=== PATIENT | male | born 1975 | race Caucasian/White ===

== ENCOUNTER 2023-01-21 12:21 | Inpatient (IN) ==
[2023-01-21] MEDS ORDERED: SODIUM CHLORIDE 0.9% 1000ML 1,000 ML IV ONE ×2 (12:55→14:27)
[2023-01-21] MEDS ORDERED: ONDANSETRON INJ 2 MG/ML 2 ML VIAL IV STA (12:55)
--- NOTE | 2023-01-21 13:01 | Emergency Department Note ---
Impression & Plan Acute dehydration, Anemia, Abnormal LFTs, Dehydration ED Provider Note NAME: KOFI COLLINS AGE: 47 SEX: M : 1975 ARRIVES VIA: Walk-In INFORMANT: Patient, the patient's family members ED PROVIDER(S): Will Pham DO CHIEF COMPLAINT: Decreased p.o. intake HPI: The patient is a 47-year-old male who presented to the emergency department with family for an evaluation of difficulty eating. 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 He presented to the emergency department because of decreased p.o. intake. He was unable to get his last round of chemotherapy because he was so weak. He is only had 1 round of chemotherapy. This cancer was initially diagnosed last April. He was treated at that time with chemotherapy. This is a repeat chemotherapy treatment as the patient was found to have metastatic disease. He denies having any chest pain but does complain of difficulty breathing. He also complains of abdominal distention. He notices no swelling in his legs. He had no fever according to his family members. They called the patient's primary oncologist and they were referred to the emergency department for further evaluation. ROS: See above HPI for pertinent positives & negatives. A total of 10 systems reviewed and were otherwise negative. PAST MEDICAL HISTORY: See Below PAST SURGICAL HISTORY: See Below FAMILY HISTORY: See Below SOCIAL HISTORY: See Below HOME MEDICATIONS: See Below ALLERGIES: See Below VITALS: See Below PHYSICAL EXAMINATION: GENERAL: The patient is frail and cachectic appearing. EYES: The conjunctivae are icteric. The pupils are round and reactive. EARS, NOSE, MOUTH AND THROAT: The nose is without any evidence of any deformity. Mucous membranes are dry. NECK: The neck is nontender and supple. RESPIRATORY: Normal respiratory effort is noted there is no evidence of wheezing rhonchi or rales CARDIOVASCULAR: Regular rate and rhythm noted there no murmurs rubs or gallops normal S1 normal S2. GASTROINTESTINAL: The abdomen is distended with hepatomegaly noted to palpation. MUSCULOSKELETAL/EXTREMITIES: There is no evidence of gross deformity full range of motion is noted in the hips and shoulders. SKIN: Pedal edema was noted bilaterally. Skin was cool. Skin was jaundiced. NEUROLOGIC: Patient is awake and oriented to person place and situation. Strength was symmetric but diminished. MEDICAL DECISION MAKING: The patient is a 47-year-old male who presented to the emergency department for an evaluation of generalized weakness. The patient has not been eating or drinking. The patient was very ill on my initial evaluation. He was very cachectic. He was treated with multiple IV fluid boluses. I discussed the patient's laboratory and radiographic studies with him and his family member. He appears to have a significant elevation in his liver function studies compared to before. He also has an elevation in his creatinine. His lactic acid was very high. The patient has metastatic cancer. I am unsure of how well the patient will do overall. He was consented for blood however blood products were held at this time until he was evaluated by the admitting team. He was treated with a large fluid bolus. I discussed patient's laboratory and rad iographic studies with the on-call [facility] hospitalist group. Previous laboratory and radiographic studies were obtained from [facility]. Triage Nursing notes reviewed. Prior medical records reviewed Vital Signs: reviewed and remarkable for tachycardia. Differential diagnosis: Gastroenteritis, food borne illness, infections, appendicitis, diverticulitis, inflammatory bowel disease, obstruction, GI bleed, biliary pathology, volvulus, as well as other pathologies. ER treatment provided: See below Diagnostics interpreted by me: ECG: EKG was obtained in the emergency department. My interpretation is normal sinus rhythm at 95 bpm. Nonspecific T wave abnormalities were noted with inversions. Low voltage was noted throughout. No previous tracing was available. Cardiac Monitoring: An order was placed for continuous cardiac monitoring. The monitor shows a rate of 93 bpm with sinus rhythm. Laboratory studies: As stated above and show below. Imaging studies: See below. Radiographic imaging was reviewed by myself Consultation(s): I discussed this case with Harleen who is on for the [facility] hospitalist group. ED COURSE: Procedures: none Critical Care: I have personally spent greater than 35 minutes of critical care time in the direct management of this patient. This includes bedside care, interpretation of diagnostic studies, and testing, discussion with consultants, patient, and family members, and other required patient management activities. This 35 minutes is in excess of all separately billable procedures. 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 Sister Osteoarthritis Brother No problems noted. Social History Smoking Status: Never smoker Tobacco Type: Cigarettes Age Started Using Tobacco: 10; packs per day: 1.5; Second Hand Exposure: Yes; Hx Alcohol Use: No Hx Substance Use: No Preferred Language: Irish Communication Ability: Effective Hearing Ability: Normal Beliefs That Will Affect Care: None marital status: Life Partner Current Living Situation: Significant Other and Other Current Living Situation Comment: 2 sons + girlfriend lives with pt current occupational status: employed current occupation: construction How many Children do You have: 2 Feels Safe at Home: Yes Allergies Allergies Allergy/AdvReac Type Severity Reaction Status Date / Time No Known Drug Allergies Allergy Verified 12/07/22 10:13 Home Meds Home Medications Medication Instructions Recorded Confirmed baclofen 10 mg tablet 10 mg PO TID PRN pain/back spasms 07/02/22 12/07/22 paroxetine HCl 20 mg tablet 20 mg PO DAILY 07/02/22 12/07/22 ondansetron HCl 8 mg tablet 8 mg PO Q8H PRN 08/10/22 12/07/22 prochlorperazine maleate 10 mg 10 mg PO Q6H PRN 08/10/22 12/07/22 tablet (Compazine) tramadol 50 mg tablet 50 mg PO Q8H PRN 08/30/22 12/07/22 dexamethasone 4 mg tablet 4 mg PO .COMPLEX 12/07/22 12/07/22 Previous Rx's Medication Instructions Recorded Magic Mouthwash 300 mL mouthwash 10 ml mucous membrane AC #300 mL 08/24/22 benzonatate 100 mg capsule 100 mg PO TID PRN cough #60 caps 09/07/22 Results & Data (ED) Vital Signs Vital Signs - 24 hr 01/21/23 12:28 01/21/23 12:40 01/21/23 12:55 Temperature 36.9 C Temperature Source Temporal Artery Scan Pulse Rate 109 H 92 H 97 H Pulse Rate [Apical] Pulse Rate from SpO2 Sensor Pulse Rhythm [Apical] Pulse Strength [Apical] Respiratory Rate 16 22 Respiratory Effort / Characteristics Non-Labored Spontaneous Respiratory Depth Normal Respiratory Pattern Regular Blood Pressure 89/61 L Blood Pressure [Right Arm] Blood Pressure Mean 70 Blood Pressure Mean [Right Arm] Blood Pressure Position Sitting Blood Pressure Position [Right Arm] Pulse Oximetry 96 99 Oxygen Delivery Method Room Air Room Air Sepsis Recent Fever Within 48 Hours No Sepsis New/Unexplained Change in Mental Status N/A Sepsis Action Taken by Nursing No Action Required 01/21/23 12:55 01/21/23 12:39 01/21/23 12:40 Temperature Temperature Source Pulse Rate 95 H 94 H Pulse Rate [Apical] 97 H Pulse Rate from SpO2 Sensor 95 H 93 H Pulse Rhythm [Apical] Regular Pulse Strength [Apical] Normal Respiratory Rate 22 24 23 Respiratory Effort / Characteristics Non-Labored Respiratory Depth Normal Respiratory Pattern Regular Blood Pressure Blood Pressure [Right Arm] 101/62 Blood Pressure Mean Blood Pressure Mean [Right Arm] 75 Blood Pressure Position Blood Pressure Position [Right Arm] Lying Pulse Oximetry 99 94 94 Oxygen Delivery Method Room Air Sepsis Recent Fever Within 48 Hours Sepsis New/Unexplained Change in Mental Status Sepsis Action Taken by Nursing 01/21/23 12:50 01/21/23 13:00 01/21/23 13:00 Temperature Temperature Source Pulse Rate 99 H 91 H Pulse Rate [Apical] Pulse Rate from SpO2 Sensor 92 H Pulse Rhythm [Apical] Pulse Strength [Apical] Respiratory Rate 24 23 Respiratory Effort / Characteristics Respiratory Depth Respiratory Pattern Blood Pressure 101/63 Blood Pressure [Right Arm] Blood Pressure Mean 75 Blood Pressure Mean [Right Arm] Blood Pressure Position Blood Pressure Position [Right Arm] Pulse Oximetry 95 Oxygen Delivery Method Sepsis Recent Fever Within 48 Hours Sepsis New/Unexplained Change in Mental Status Sepsis Action Taken by Nursing 01/21/23 13:10 01/21/23 13:12 01/21/23 13:12 Temperature Temperature Source Pulse Rate 99 H 102 H Pulse Rate [Apical] Pulse Rate from SpO2 Sensor 99 H 102 H Pulse Rhythm [Apical] Pulse Strength [Apical] Respiratory Rate 24 23 Respiratory Effort / Characteristics Respiratory Depth Respiratory Pattern Blood Pressure 109/69 Blood Pressure [Right Arm] Blood Pressure Mean 82 Blood Pressure Mean [Right Arm] Blood Pressure Position Blood Pressure Position [Right Arm] Pulse Oximetry 100 100 Oxygen Delivery Method Sepsis Recent Fever Within 48 Hours Sepsis New/Unexplained Change in Mental Status Sepsis Action Taken by Nursing 01/21/23 13:15 01/21/23 13:15 01/21/23 13:20 Temperature Temperature Source Pulse Rate 94 H 100 H Pulse Rate [Apical] Pulse Rate from SpO2 Sensor 96 H 99 H Pulse Rhythm [Apical] Pulse Strength [Apical] Respiratory Rate 27 H 24 Respiratory Effort / Characteristics Respiratory Depth Respiratory Pattern Blood Pressure 106/71 Blood Pressure [Right Arm] Blood Pressure Mean 82 Blood Pressure Mean [Right Arm] Blood Pressure Position Blood Pressure Position [Right Arm] Pulse Oximetry 100 100 Oxygen Delivery Method Sepsis Recent Fever Within 48 Hours Sepsis New/Unexplained Change in Mental Status Sepsis Action Taken by Nursing 01/21/23 13:30 01/21/23 13:30 01/21/23 13:40 Temperature Temperature Source Pulse Rate 97 H 92 H Pulse Rate [Apical] Pulse Rate from SpO2 Sensor 97 H 96 H Pulse Rhythm [Apical] Pulse Strength [Apical] Respiratory Rate 20 16 Respiratory Effort / Characteristics Respiratory Depth Respiratory Pattern Blood Pressure 112/62 Blood Pressure [Right Arm] Blood Pressure Mean 78 Blood Pressure Mean [Right Arm] Blood Pressure Position Blood Pressure Position [Right Arm] Pulse Oximetry 95 94 Oxygen Delivery Method Sepsis Recent Fever Within 48 Hours Sepsis New/Unexplained Change in Mental Status Sepsis Action Taken by Nursing 01/21/23 13:50 01/21/23 14:00 01/21/23 14:10 Temperature Temperature Source Pulse Rate 98 H 92 H 93 H Pulse Rate [Apical] Pulse Rate from SpO2 Sensor 100 H 92 H 95 H Pulse Rhythm [Apical] Pulse Strength [Apical] Respiratory Rate 36 H 22 22 Respiratory Effort / Characteristics Respiratory Depth Respiratory Pattern Blood Pressure 112/69 Blood Pressure [Right Arm] Blood Pressure Mean 83 Blood Pressure Mean [Right Arm] Blood Pressure Position Blood Pressure Position [Right Arm] Pulse Oximetry 95 94 93 Oxygen Delivery Method Sepsis Recent Fever Within 48 Hours Sepsis New/Unexplained Change in Mental Status Sepsis Action Taken by Nursing 01/21/23 14:15 01/21/23 14:15 01/21/23 14:20 Temperature Temperature Source Pulse Rate 100 H 100 H Pulse Rate [Apical] Pulse Rate from SpO2 Sensor 98 H 100 H Pulse Rhythm [Apical] Pulse Strength [Apical] Respiratory Rate 23 Respiratory Effort / Characteristics Respiratory Depth Respiratory Pattern Blood Pressure 106/60 Blood Pressure [Right Arm] Blood Pressure Mean 75 Blood Pressure Mean [Right Arm] Blood Pressure Position Blood Pressure Position [Right Arm] Pulse Oximetry 91 94 Oxygen Delivery Method Sepsis Recent Fever Within 48 Hours Sepsis New/Unexplained Change in Mental Status Sepsis Action Taken by Nursing 01/21/23 14:30 01/21/23 14:30 01/21/23 14:40 Temperature Temperature Source Pulse Rate 90 95 H Pulse Rate [Apical] Pulse Rate from SpO2 Sensor Pulse Rhythm [Apical] Pulse Strength [Apical] Respiratory Rate 24 23 Respiratory Effort / Characteristics Respiratory Depth Respiratory Pattern Blood Pressure 98/61 L Blood Pressure [Right Arm] Blood Pressure Mean 73 Blood Pressure Mean [Right Arm] Blood Pressure Position Blood Pressure Position [Right Arm] Pulse Oximetry Oxygen Delivery Method Sepsis Recent Fever Within 48 Hours Sepsis New/Unexplained Change in Mental Status Sepsis Action Taken by Nursing 01/21/23 14:45 01/21/23 14:45 01/21/23 14:50 Temperature Temperature Source Pulse Rate 91 H 96 H Pulse Rate [Apical] Pulse Rate from SpO2 Sensor 92 H 96 H Pulse Rhythm [Apical] Pulse Strength [Apical] Respiratory Rate 24 24 Respiratory Effort / Characteristics Respiratory Depth Respiratory Pattern Blood Pressure 105/66 Blood Pressure [Right Arm] Blood Pressure Mean 79 Blood Pressure Mean [Right Arm] Blood Pressure Position Blood Pressure Position [Right Arm] Pulse Oximetry 93 94 Oxygen Delivery Method Sepsis Recent Fever Within 48 Hours Sepsis New/Unexplained Change in Mental Status Sepsis Action Taken by Nursing 01/21/23 15:00 01/21/23 15:00 01/21/23 15:10 Temperature Temperature Source Pulse Rate 97 H 91 H Pulse Rate [Apical] Pulse Rate from SpO2 Sensor 92 H 92 H Pulse Rhythm [Apical] Pulse Strength [Apical] Respiratory Rate 26 H 22 Respiratory Effort / Characteristics Respiratory Depth Respiratory Pattern Blood Pressure 97/60 L Blood Pressure [Right Arm] Blood Pressure Mean 72 Blood Pressure Mean [Right Arm] Blood Pressure Position Blood Pressure Position [Right Arm] Pulse Oximetry 91 93 Oxygen Delivery Method Sepsis Recent Fever Within 48 Hours Sepsis New/Unexplained Change in Mental Status Sepsis Action Taken by Nursing 01/21/23 15:20 01/21/23 15:43 Temperature Temperature Source Pulse Rate 92 H Pulse Rate [Apical] 97 H Pulse Rate from SpO2 Sensor 91 H Pulse Rhythm [Apical] Regular Pulse Strength [Apical] Respiratory Rate 22 24 Respiratory Effort / Characteristics Respiratory Depth Respiratory Pattern Blood Pressure Blood Pressure [Right Arm] 103/63 Blood Pressure Mean Blood Pressure Mean [Right Arm] 76 Blood Pressure Position Blood Pressure Position [Right Arm] Pulse Oximetry 93 93 Oxygen Delivery Method Room Air Sepsis Recent Fever Within 48 Hours Sepsis New/Unexplained Change in Mental Status Sepsis Action Taken by Longterm Medications Current Medication List: was personally reviewed by me Laboratory Data Attestation: I reviewed the patient's lab results. 01/21/23 13:02 01/21/23 13:02 Lab Results 01/21/23 01/21/23 01/21/23 Range/Units 13:02 13:02 13:02 WBC 42.02 H* (4.8-10.8) K/ul RBC 1.80 L (4.70-6.10) M/uL Hgb 6.2 L* (14.0-18.0) g/dl Hct 18.3 L* (42.0-52.0) % MCV 101.7 H (80.0-100.0) fL MCH 34.4 H (25.0-34.0) pg MCHC 33.9 (32.0-36.0) g/dL RDW Std Deviation 67.5 H (36.4-46.3) fL RDW Coeff of [place] 25.6 H (11.5-14.5) % Plt Count 66 L (130-400) K/uL MPV 12.7 H (9.4-12.4) fL Absolute Nucleated RBC 3.51 H (0-0.12) K/uL Nucleated RBC % (auto) 8.4 % Neutrophils % (Manual) 88 % Lymphocytes % (Manual) 1 % Monocytes % (Manual) 1 % Eosinophils % (Manual) 3 % Metamyelocytes % (Man) 3 % Myelocytes % (Man) 3 % Promyelocytes % (Man) 2 % Neutrophils # (Manual) 36.98 H (1.40-6.50) K/uL Total Absolute Neuts 36.98 H (1.4-6.5) K/uL Lymphocytes # (Manual) 0.42 L (1.2-3.4) K/uL Total Abs Lymphocytes 0.42 L (1.2-3.4) K/uL Monocytes # (Manual) 0.42 (0.11-0.59) K/uL Eosinophils # (Manual) 1.26 H (0-0.50) K/uL Metamyelocytes # (Man) 1.26 H (0-0) K/uL Myelocytes # (Manual) 1.26 H (0-0) K/uL Promyelocytes # (Man) 0.84 H (0-0) K/uL Blood Smear Review Platelet Estimate Decreased L (Normal) Polychromasia 1+ Target Cells 1+ Echinocytes 1+ PT 42.1 H (9.0-12.0) Seconds INR 4.3 H (0.9-1.1) APTT 32.2 H (21.0-31.0) Seconds PTT Ratio 1.2 VBG pH (7.36-7.41) VBG pCO2 (38-50) mmHg VBG pO2 mmHg VBG HCO3 mmol/L VBG O2 Saturation % VBG Base Excess mEq/L Sodium 138 (136-145) mmol/L Potassium 5.3 H (3.5-5.1) mmol/L Chloride 98 (98-107) mmol/L Carbon Dioxide 17 L (21-32) mmol/L Anion Gap 23 H (3-11) BUN 83 H (6-23) mg/dl Creatinine 1.82 H (0.6-1.4) mg/dl Est Cr Clr Drug Dosing Not Reportable Est GFR ( Amer) 49.4 ml/min Est GFR (Non-Af Amer) 42.7 ml/min BUN/Creatinine Ratio 45.6 H (10-20) Glucose 109 H (70-99(Fasting)) mg/dl Lactate (0.4-2.0) mmol/L Calcium 7.7 L (8.6-10.3) mg/dl Magnesium 3.1 H (1.7-2.4) mg/dl Total Bilirubin 17.9 H (0.2-1.0) mg/dl Direct Bilirubin TNP AST 709 H (13-39) U/L ALT 1127 H (7-52) U/L Alkaline Phosphatase 463 H (34-104) U/L Troponin I High Sens 49.2 H (0-20) pg/ml Total Protein 4.5 L (6.0-8.3) gm/dl Albumin 2.6 L (3.4-5.0) gm/dl Procalcitonin (0-0.5) ng/ml SARS-CoV-2, RNA, NAAT (NEGATIVE) Blood Type Antibody Screen 01/21/23 01/21/23 01/21/23 Range/Units 13:02 13:02 14:03 WBC (4.8-10.8) K/ul RBC (4.70-6.10) M/uL Hgb (14.0-18.0) g/dl Hct (42.0-52.0) % MCV (80.0-100.0) fL MCH (25.0-34.0) pg MCHC (32.0-36.0) g/dL RDW Std Deviation (36.4-46.3) fL RDW Coeff of [place] (11.5-14.5) % Plt Count (130-400) K/uL MPV (9.4-12.4) fL Absolute Nucleated RBC (0-0.12) K/uL Nucleated RBC % (auto) % Neutrophils % (Manual) % Lymphocytes % (Manual) % Monocytes % (Manual) % Eosinophils % (Manual) % Metamyelocytes % (Man) % Myelocytes % (Man) % Promyelocytes % (Man) % Neutrophils # (Manual) (1.40-6.50) K/uL Total Absolute Neuts (1.4-6.5) K/uL Lymphocytes # (Manual) (1.2-3.4) K/uL Total Abs Lymphocytes (1.2-3.4) K/uL Monocytes # (Manual) (0.11-0.59) K/uL Eosinophils # (Manual) (0-0.50) K/uL Metamyelocytes # (Man) (0-0) K/uL Myelocytes # (Manual) (0-0) K/uL Promyelocytes # (Man) (0-0) K/uL Blood Smear Review Platelet Estimate (Normal) Polychromasia Target Cells Echinocytes PT (9.0-12.0) Seconds INR (0.9-1.1) APTT (21.0-31.0) Seconds PTT Ratio VBG pH (7.36-7.41) VBG pCO2 (38-50) mmHg VBG pO2 mmHg VBG HCO3 mmol/L VBG O2 Saturation % VBG Base Excess mEq/L Sodium (136-145) mmol/L Potassium (3.5-5.1) mmol/L Chloride (98-107) mmol/L Carbon Dioxide (21-32) mmol/L Anion Gap (3-11) BUN (6-23) mg/dl Creatinine (0.6-1.4) mg/dl Est Cr Clr Drug Dosing Est GFR ( Amer) ml/min Est GFR (Non-Af Amer) ml/min BUN/Creatinine Ratio (10-20) Glucose (70-99(Fasting)) mg/dl Lactate 14.2 H* (0.4-2.0) mmol/L Calcium (8.6-10.3) mg/dl Magnesium (1.7-2.4) mg/dl Total Bilirubin (0.2-1.0) mg/dl Direct Bilirubin AST (13-39) U/L ALT (7-52) U/L Alkaline Phosphatase (34-104) U/L Troponin I High Sens (0-20) pg/ml Total Protein (6.0-8.3) gm/dl Albumin (3.4-5.0) gm/dl Procalcitonin 2.42 H (0-0.5) ng/ml SARS-CoV-2, RNA, NAAT NEGATIVE (NEGATIVE) Blood Type Antibody Screen 01/21/23 01/21/23 01/21/23 Range/Units 14:08 14:51 15:57 WBC (4.8-10.8) K/ul RBC (4.70-6.10) M/uL Hgb (14.0-18.0) g/dl Hct (42.0-52.0) % MCV (80.0-100.0) fL MCH (25.0-34.0) pg MCHC (32.0-36.0) g/dL RDW Std Deviation (36.4-46.3) fL RDW Coeff of [place] (11.5-14.5) % Plt Count (130-400) K/uL MPV (9.4-12.4) fL Absolute Nucleated RBC (0-0.12) K/uL Nucleated RBC % (auto) % Neutrophils % (Manual) % Lymphocytes % (Manual) % Monocytes % (Manual) % Eosinophils % (Manual) % Metamyelocytes % (Man) % Myelocytes % (Man) % Promyelocytes % (Man) % Neutrophils # (Manual) (1.40-6.50) K/uL Total Absolute Neuts (1.4-6.5) K/uL Lymphocytes # (Manual) (1.2-3.4) K/uL Total Abs Lymphocytes (1.2-3.4) K/uL Monocytes # (Manual) (0.11-0.59) K/uL Eosinophils # (Manual) (0-0.50) K/uL Metamyelocytes # (Man) (0-0) K/uL Myelocytes # (Manual) (0-0) K/uL Promyelocytes # (Man) (0-0) K/uL Blood Smear Review Platelet Estimate (Normal) Polychromasia Target Cells Echinocytes PT (9.0-12.0) Seconds INR (0.9-1.1) APTT (21.0-31.0) Seconds PTT Ratio VBG pH 7.37 (7.36-7.41) VBG pCO2 26 L (38-50) mmHg VBG pO2 36 mmHg VBG HCO3 15 mmol/L VBG O2 Saturation < 60.0 % VBG Base Excess -8.6 mEq/L Sodium (136-145) mmol/L Potassium (3.5-5.1) mmol/L Chloride (98-107) mmol/L Carbon Dioxide (21-32) mmol/L Anion Gap (3-11) BUN (6-23) mg/dl Creatinine (0.6-1.4) mg/dl Est Cr Clr Drug Dosing Est GFR ( Amer) ml/min Est GFR (Non-Af Amer) ml/min BUN/Creatinine Ratio (10-20) Glucose (70-99(Fasting)) mg/dl Lactate 14.4 H* (0.4-2.0) mmol/L Calcium (8.6-10.3) mg/dl Magnesium (1.7-2.4) mg/dl Total Bilirubin (0.2-1.0) mg/dl Direct Bilirubin AST (13-39) U/L ALT (7-52) U/L Alkaline Phosphatase (34-104) U/L Troponin I High Sens (0-20) pg/ml Total Protein (6.0-8.3) gm/dl Albumin (3.4-5.0) gm/dl Procalcitonin (0-0.5) ng/ml SARS-CoV-2, RNA, NAAT (NEGATIVE) Blood Type O Positive Antibody Screen NEGATIVE Administered Medications Piperacillin Sod/Tazobactam Sod (Zosyn) 4.5 gm in 120 mls @ 240 mls/hr IV NOW ONE Stop: 01/21/23 16:41 Last Admin: 01/21/23 16:36 Dose: 240 mls/hr Documented By: RSL Discontinued Medications Sodium Chloride (Nss 1000ml) 1,000 mls @ 999 mls/hr IV .Q1H1M ONE Stop: 01/21/23 13:55 Last Infusion: 01/21/23 14:12 Dose: 0 mls/hr Documented By: Admin: 01/21/23 13:18 Dose: 999 mls/hr Documented By: RSL Sodium Chloride (Nss 1000ml) 1,000 mls @ 999 mls/hr IV .Q1H1M ONE Stop: 01/21/23 15:27 Last Infusion: 01/21/23 16:22 Dose: 0 mls/hr Documented By: Admin: 01/21/23 15:00 Dose: 999 mls/hr Documented By: RSL Sodium Chloride (Nss 1000ml) 500 mls @ 999 mls/hr IV .Q31M ONE Stop: 01/21/23 14:57 Last Infusion: 01/21/23 16:22 Dose: 0 mls/hr Documented By: Admin: 01/21/23 15:40 Dose: 999 mls/hr Documented By: Ondansetron HCl (Ondansetron Inj 2 Mg/Ml 2 Ml Vial) 4 mg IV NOW STA Stop: 01/21/23 12:56 Last Admin: 01/21/23 13:18 Dose: 4 mg Documented By: RSL Imaging Data Attestation: I personally reviewed and interpreted this imaging study as follows: My Impression: 1 view chest x-ray was obtained in the emergency department. There was a mass noted in the right upper lung. Final report below. Radiologist's Impression: Chest X-Ray 01/21/23 12:55 SINGLE VIEW CHEST CLINICAL HISTORY: Sepsis. FINDINGS: AP, portable, upright and semierect chest radiographs are compared to study dated 05/01/2022 and correlated with chest CT dated 12/15/2022. A left internal jugular central venous infusion port is in place. Dextrocardia is note d. The cardiomediastinal silhouette is unremarkable. Emphysema and chronic interstitial thickening is similar to previous. A 2.7 cm spiculated nodule is again seen at the right apex. There is mild bibasilar scarring/atelectasis. No airspace consolidation or pleural effusion is identified.. No pneumothorax is seen. The bony thorax is grossly intact. 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 IMPRESSION: 1. Emphysematous change with no acute cardiopulmonary abnormality identified. 2. A 2.7 cm spiculated lesion is again seen at the right apex. Correlate with the oncological history. 3. Dextrocardia and situs inversus. ACT 112: Negative or not required by law. Electronically signed by: Jeremie Whatley M.D. 01/21/2023 1:48 PM KUB X-Ray 01/21/23 12:55 KUB HISTORY: vomiting COMPARISON: Outside hospital abdomen and pelvis CT 12/15/2022. FINDINGS: The liver remains enlarged and is seen on the left side of the body consistent the patient's known history of situs inversus. The bowel gas pattern is unremarkable. There are no dilated loops of small bowel to suggest an obstruction. No renal calculi. No ureteral calculi. Calcifications in the deep pelvis likely represent phleboliths. No pneumoperitoneum or pneumatosis. IMPRESSION: 1. Situs inversus again noted. 2. Hepatomegaly, unchanged. 3. No evidence for a bowel obstruction. ACT 112: Negative or not required by law. Electronically signed by: Yogesh Marcus M.D. 01/21/2023 1:42 PM Abdomen/Pelvis CT 01/21/23 14:31 CT OF THE ABDOMEN AND PELVIS WITHOUT CONTRAST CLINICAL HISTORY: Vomiting. Jaundice. Metastatic lung cancer. COMPARISON STUDY: CT of the chest, abdomen and pelvis December 15, 2022. TECHNIQUE: Axial images of the abdomen and pelvis were obtained without IV co ntrast. Images were reviewed in the axial, sagittal, and coronal planes. Automated exposure control was utilized for the study. A dose lowering technique was utilized adhering to the principles of ALARA. FINDINGS: Note is made of several groundglass nodular densities within the lower lungs which measure up to 7 mm. These are new since CT of December 15, 2022. Evaluation of the abdomen and pelvis is suboptimal given lack of contrast. No pneumatosis, free air or portal venous gas is present. Situs inversus is noted. There has been interval development of heterogeneity of the liver since CT of December 15, 2022. There is suggestion of innumerable hypodense hepatic lesions which measure up to approximately 1.1 cm. Hepatomegaly has also developed. There is no biliary ductal dilatation. A small amount of ascites within the abdomen and pelvis as well as mesenteric edema and stranding has also developed. This may be related to diffuse liver abnormality. Size of the spleen is normal. Adrenal glands and kidneys are unremarkable. There is no hydronephrosis. The pancreas is suboptimally assessed on this exam. Moderate abdominal lymphadenopathy is noted. This was shown on CT of December 15, 2022. Index gastrohepatic ligament lymph node on image 149 measures 3.8 x 2.6 cm. 7 mm suspected implant lateral to the right kidney on axial image 206 is new since prior CT. There is no evidence for a bowel obstruction. No suspicious lesion within the visualized skeletal structures. The wall edema is present. IMPRESSION: 1. Interval development of heterogeneity of the liver and hepatomegaly since CT of December 15, 2022. Although suboptimally visualized on this unenhanced exam, there is suggestion of innumerable hepatic lesions. Although not definitive, the findings are suspicious for extensive hepatic metastatic disease. A liver protocol CT could be obtained for further evaluation. 2. Small amount of ascites and mesenteric edema and stranding. This is nonspecific but likely related to the diffuse liver abnormality. 3. No bowel obstruction. 4. Redemonstration of abdominal lymphadenopathy. New 7 mm implant lateral to the right kidney. ACT 112: Negative or not required by law. Electronically signed by: Russell Aguirre M.D. 01/21/2023 4:10 PM Discharge Plan Visit Data Chief Complaint: Dehydration Stated Complaint: NOT EATING OR DRINKING, SWELLING, STAGE 4 CANCER ED Provider: Will Pham Discharge Problem: Acute dehydration, Anemia, Abnormal LFTs, Dehydration Patient Disposition: Being Evaluated by Hospitalist Forms Stand Alone Forms: My [employer] Prescriptions Prescriptions: No Action baclofen 10 mg tablet 10 mg PO TID PRN (Reason: pain/back spasms) Rx Instructions: 1/2-1 tab PO q8h PRN paroxetine HCl 20 mg tablet 20 mg PO DAILY ondansetron HCl 8 mg tablet 8 mg PO Q8H PRN prochlorperazine maleate [Compazine] 10 mg tablet 10 mg PO Q6H PRN tramadol 50 mg tablet 50 mg PO Q8H PRN dexamethasone 4 mg tablet 4 mg PO .COMPLEX Patient Comments: following taper, 2 tablets morning, 2 at noon, 1 @ supper Rx Instructions: 4 mg orally; Magic Mouthwash 300 mL mouthwash 10 ml mucous membrane AC Qty: 300 5RF Rx Instructions: Benadryl 12.5 mg/5 mL oral elixir; Maalox 200 mg-200 mg-20 mg/5 mL oral suspension; Xylocaine Viscous 2 % mucosal solution;[Generic substitution ok] 1:1:1 compound Per 300 mL benzonatate 100 mg capsule 100 mg PO TID PRN (Reason: cough) Qty: 60 1RF Rx Instructions: 1 or 2 pearls 3 times a day as needed for cough. Referrals Referrals: Yogesh Chang M.D. [Primary Care Provider] -
--- NOTE | 2023-01-21 13:45 | XRay Report ---
KUB HISTORY: vomiting COMPARISON: Outside hospital abdomen and pelvis CT 12/15/2022. FINDINGS: The liver remains enlarged and is seen on the left side of the body consistent the patient' s known history of situs inversus. The bowel gas pattern is unremarkable. There are no dilated loops of small bowel to suggest an obstruction. No renal calculi. No ureteral calculi. Calcifications in t he deep pelvis likely represent phleboliths. No pneumoperitoneum or pneumatosis. IMPRESSION: 1. Situs inversus again noted. 2. Hepatomegaly, unchanged. 3. No evidence for a bowel obstruction. ACT 112: Negative or not required by law. Electronically signed by: Yogesh Marcus M.D. 01/21/2023 1:42 PM
--- NOTE | 2023-01-21 13:50 | XRay Report ---
SINGLE VIEW CHEST CLINICAL HISTORY: Sepsis. FINDINGS: AP, portable, upright and semierect chest radiographs are compared to study dated 05/01/2022 and correlated with chest CT dated 12/15/2022. A left internal jugular central venous infusion port is in place. Dextrocardia is noted. The cardiomediastinal silhouette is unremarkable. Emphysema and chr onic interstitial thickening is similar to previous. A 2.7 cm spiculated nodule is again seen at the right apex. There is mild bibasilar scarring/atelectasis. No airspace consolidation or pleural effusi on is identified.. No pneumothorax is seen. The bony thorax is grossly intact. There is evidence of s itus inversus, with the liver below the left hemidiaphragm and the stomach projecting over the right upper quadrant. IMPRESSION: 1. Emphysematous change with no acute cardiopulmonary abnormality identified. 2. A 2.7 cm spiculated lesion is again seen at the right apex. Correlate with the oncological history . 3. Dextrocardia and situs inversus. ACT 112: Negative or not required by law. Electronically signed by: Jeremie Whatley M.D. 01/21/2023 1:48 PM
[2023-01-21 13:57] LABS: Hematocrit (blood only) 18.3 % (42.0-52.0); Hemoglobin 6.2 g/dl (14.0-18.0); Mean Corpuscular Hemoglobin 34.4 pg (25.0-34.0); Mean Corpuscular Hgb Conc 33.9 g/dL (32.0-36.0); Mean Corpuscular Volume 101.7 fL (80.0-100.0); RDW Coefficient of Variation 25.6 % (11.5-14.5); RDW Standard Deviation 67.5 fL (36.4-46.3); White Blood Count 42.02 K/ul (4.8-10.8)
[2023-01-21 14:07] LABS: Mean Platelet Volume 12.7 fL (9.4-12.4); Nucleated RBC # (auto) 3.51 K/uL (0-0.12); Nucleated RBC % (auto) 8.4 %; Platelet Count 66 K/uL (130-400)
[2023-01-21 14:10] LABS: ALC (manual) 0.42 K/uL (1.2-3.4); ANC (manual) 36.98 K/uL (1.4-6.5); Echinocytes 1+; Eosinophils # (manual) 1.26 K/uL (0-0.50); Eosinophils % (manual) 3 %; Lymphocytes # (manual) 0.42 K/uL (1.2-3.4); Lymphocytes % (manual) 1 %; Metamyelocytes # (manual) 1.26 K/uL (0-0); Metamyelocytes % (manual) 3 %; Monocytes # (manual) 0.42 K/uL (0.11-0.59); Monocytes % (manual) 1 %; Myelocytes # (manual) 1.26 K/uL (0-0); Myelocytes % (manual) 3 %; Neutrophils # (manual) 36.98 K/uL (1.40-6.50); Neutrophils % (manual) 88 %; Platelet Estimate Decreased (Normal); Polychromasia 1+; Promyelocytes # (manual) 0.84 K/uL (0-0); Promyelocytes % (manual) 2 %; Target Cells 1+
[2023-01-21 14:14] LABS: Alanine Aminotransferase 1127 U/L (7-52); Albumin Level 2.6 gm/dl (3.4-5.0); Alkaline Phosphatase 463 U/L (34-104); Anion Gap 23 (3-11); Aspartate Aminotransferase 709 U/L (13-39); BUN Creatinine Ratio 45.6 (10-20); Bilirubin,Total 17.9 mg/dl (0.2-1.0); Blood Urea Nitrogen 83 mg/dl (6-23); Calcium 7.7 mg/dl (8.6-10.3); Carbon Dioxide 17 mmol/L (21-32); Chloride 98 mmol/L (98-107); Est GFR (African American) 49.4 ml/min; Est GFR (Non-African American) 42.7 ml/min; Glucose 109 mg/dl (70-99(Fasting)); Magnesium 3.1 mg/dl (1.7-2.4); Potassium 5.3 mmol/L (3.5-5.1); Sodium 138 mmol/L (136-145); Total Protein 4.5 gm/dl (6.0-8.3); Troponin I High Sensitivity 49.2 pg/ml (0-20)
[2023-01-21 14:16] LABS: INR 4.3 (0.9-1.1); Partial Thromboplastin Ratio 1.2; Partial Thromboplastin Time 32.2 Seconds (21.0-31.0); Prothrombin Time 42.1 Seconds (9.0-12.0)
[2023-01-21] MEDS ORDERED: SODIUM CHLORIDE 0.9% 1000ML 500 ML IV ONE (14:27)
[2023-01-21 15:25] LABS: Base Excess VBG -8.6 mEq/L; HCO3 VBG 15 mmol/L; Oxygen Saturation VBG < 60.0 %; PCO2 VBG 26 mmHg (38-50); PO2 VBG 36 mmHg; pH VBG 7.37 (7.36-7.41)
--- NOTE | 2023-01-21 16:11 | CT Scan Report ---
CT OF THE ABDOMEN AND PELVIS WITHOUT CONTRAST CLINICAL HISTORY: Vomiting. Jaundice. Metastatic lung cancer. COMPARISON STUDY: CT of the chest, abdomen and pelvis December 15, 2022. TECHNIQUE: Axial images of the abdomen and pelvis were obtained without IV contrast. Images were revi ewed in the axial, sagittal, and coronal planes. Automated exposure control was utilized for the alisson dy. A dose lowering technique was utilized adhering to the principles of ALARA. FINDINGS: Note is made of several groundglass nodular densities within the lower lungs which measure up to 7 mm. These are new since CT of December 15, 2022. Evaluation of the abdomen and pelvis is suboptim al given lack of contrast. No pneumatosis, free air or portal venous gas is present. Situs inversus i s noted. There has been interval development of heterogeneity of the liver since CT of December 15, 2022. There is suggestion of innumerable hypodense hepatic lesions which measure up to approximately 1.1 c m. Hepatomegaly has also developed. There is no biliary ductal dilatation. A small amount of ascites within the abdomen and pelvis as well as mesenteric edema and stranding has also developed. This may be related to diffuse liver abnormality. Size of the spleen is normal. Adrenal glands and kidneys are unremarkable. There is no hydronephrosis. The pancreas is suboptimally assessed on this exam. Modera te abdominal lymphadenopathy is noted. This was shown on CT of December 15, 2022. Index gastrohepatic lig ament lymph node on image 149 measures 3.8 x 2.6 cm. 7 mm suspected implant lateral to the right kidn ey on axial image 206 is new since prior CT. There is no evidence for a bowel obstruction. No suspici ous lesion within the visualized skeletal structures. The wall edema is present. IMPRESSION: 1. Interval development of heterogeneity of the liver and hepatomegaly since CT of December 15, 2022. Alt sreekanth suboptimally visualized on this unenhanced exam, there is suggestion of innumerable hepatic les ions. Although not definitive, the findings are suspicious for extensive hepatic metastatic disease. A liver protocol CT could be obtained for further evaluation. 2. Small amount of ascites and mesenteric edema and stranding. This is nonspecific but likely related to the diffuse liver abnormality. 3. No bowel obstruction. 4. Redemonstration of abdominal lymphadenopathy. New 7 mm implant lateral to the right kidney. ACT 112: Negative or not required by law. Electronically signed by: Russell Aguirre M.D. 01/21/2023 4:10 PM
[2023-01-21] MEDS ORDERED: PIPERACILLIN/TAZOBACTAM 4.5 GM/120 ML BAG IV ONE (16:12)
--- NOTE | 2023-01-21 18:09 | History & Physical Report ---
Date of Service January 21, 2023 Assessment & Plan (1) Acute liver failure: Plan: Acute/unstable - Acute liver failure secondary to metastatic disease - Reviewed CMP - ALT 1100, AST 700, Alk phos 463 with TBili of 18 - CT a/p performed by ED as requested, no evidence of obstruction - Avoid hepatotoxic meds (no apap) (2) Acute kidney injury: Plan: Acute/unstable - S/p 3L of NSS in ED - Likely secondary to dehydration in setting of little to no fluid intake over the past 2 weeks - Chemistry panel reviewed - also hyperkalemic (mild at 5.3) - No further fluid to be given (3) Leukocytosis: Plan: Acute/unstable - Reviewed cbc, marked leukocytosis of 42.02 with left shift - Patient has NOT received neupogen recently - Elevated procalcitonin of 2.42 and lactate of 14 would suggest infection but source is unclear - UA ordered but has not yet been collected - Empiric dose of Zosyn given in ED - No further infectious work up will be performed as pt wishes to be comfort (4) Adenocarcinoma of lung, stage 4: Plan: Chronic/unstable - Diagnosed in April 2022 s/p chemo and radiation - Metastatic to brain and liver - Extensive smoking history and continues to smoke - Can offer nicotine patch if he should request - Patient would like to transition to comfort measures/hospice (5) Acute anemia: Plan: Acute/unstable - CBC reviewed- Hgb 6.2/hct 18.3 - Patient does not want any blood product transfusion - Stop lab draws and consent for blood has been amended (6) Depression: Plan: Chronic/stable - Continue Paxil Plan I had a very lengthy conversation with patient's significant other, Joseline, and sister, Pam, at bedside in the ER. Given how advanced his cancer which is now widely metastatic to liver causing liver failure, his prognosis is very poor. His chance of surviving a full resuscitation in the event of cardiopulmonary arrest is very low. The family seemed unaware of his liver mets. After discussion, decision was made collaboratively between family and the patient to proceed with DNR/DNI status. It was also discussed to stop all treatment at this time and focus on comfort. Initially, they had signed consent for blood products but after this discussion, Clinton decided he does not want to receive a blood transfusion and this form was amended. I have reached out to a hospice agency who will follow up with case management team and the family tomorrow. They would like to facilitate discharge home with hospice tomorrow so that Clinton can be at home and pass peacefully surrounded by his family, particularly his two sons. Order has been written for hospice to eval and treat, script is on the chart. Palliative medicine orders have been implemented. No further lab draws and only qshift vital signs will be checked. He can eat and drink as he wishes. Provide supplemental O2. Dilaudid will be offered for pain in light of his JAYLIN, as well as Ativan PRN. Will place a quiroga (if he is agreeable) for comfort also. Plan has been discussed with Dr. De Paz who will also see and evaluate this patient. Further orders will be implemented as warranted. History of Present Illness Chief Complaint: dehydration/not eating or drinking Primary Care Provider: Yogesh Whatley Charlene [place]o [place] is a 47 yo M with a pmhx of NSCLC which was diagnosed in April 2022 and has since spread to his brain and liver who presents to the ER today c/o dehydration with little to no oral intake for the past 2 weeks. He was r ecently hospitalized at [facility] for abdominal pain with questionable acute cholecystitis. He was seen by general surgery who did not feel that the patient required surgical intervention for suspected acute cholecystitis as they felt that the gallbladder changes were all secondary to abnormal liver findings concerning for metastatic disease. Patient is currently awake and oriented and accompanied by his girlfriend and sister. Today, his work up in the ER reveals a markedly elevated WBC of 42,000 with a left shift, thrombocytopenia of 66, INR of 4.3, TB of 18, AST 709, ALT 1127, alk phos 463, and lactate of 14.2. He received 3L of fluids with a follow up lactate unchanged at 14.4. Procalcitonin was elevated at 2.42. He had a CT of his abdomen and pelvis which demonstrated hepatomegaly and innumerable hepatic lesions suspicious for extensive hepatic metastatic disease. Small amount of acites was noted and mesenteric edema and stranding. In addition to IVF, received an empiric dose of Zosyn and a dose of IV Zofran and was referred to the hospitalists for admission. Allergies Allergy/AdvReac Type Severity Reaction Status Date / Time No Known Drug Allergies Allergy Unknown Verified 01/21/23 16:58 Home Medications Medication Instructions Recorded Confirmed Type baclofen 10 mg tablet 10 mg PO TID PRN pain/back spasms 07/02/22 01/21/23 History paroxetine HCl 20 mg tablet 20 mg PO DAILY 07/02/22 01/21/23 History ondansetron HCl 8 mg tablet 8 mg PO Q8H PRN Nausea 08/10/22 01/21/23 History prochlorperazine maleate 10 mg 10 mg PO Q6H PRN Nausea 08/10/22 01/21/23 History tablet (Compazine) benzonatate 100 mg capsule 100 mg PO TID PRN cough #60 caps 09/07/22 01/21/23 Rx folic acid 1 mg tablet 1 mg PO DAILY 01/21/23 01/21/23 History morphine concentrate 100 mg/5 mL 40 mg PO Q4 PRN Pain 01/21/23 01/21/23 History (20 mg/mL) oral solution nystatin 100,000 unit/gram topical 1 applic topical TID 01/21/23 01/21/23 History cream polyethylene glycol 3350 17 17 g PO DAILY 01/21/23 01/21/23 History gram/dose oral powder terbinafine HCl 250 mg tablet 250 mg PO DAILY 01/21/23 01/21/23 History Past Med/Surg History Medical History (Updated 01/21/23 @ 18:33 by Tiarra Brooks PA-C) GERD (gastroesophageal reflux disease) Metastatic cancer to lung Situs inversus abdominalis Situs inversus thoracis Tobacco dependence Surgical History History of carpal tunnel surgery of left wrist 2020 History of tympanostomy tube placement childhood S/P rotator cuff repair Right; 2018 Family History Grandfather (Maternal) Lung cancer, Onset Age: 72 Grandmother (Maternal) Lung cancer, Onset Age: 75 Hypertension Mother Colon cancer, Onset Age: 62 Father No problems noted. Sister Osteoarthritis Brother No problems noted. Social History Smoking Status: Never smoker Tobacco Type: Cigarettes Age Started Using Tobacco: 10; packs per day: 1.5; Second Hand Exposure: Yes; Hx Alcohol Use: No Hx Substance Use: No Preferred Language: Bahamian Communication Ability: Effective Hearing Ability: Normal Beliefs That Will Affect Care: None marital status: Life Partner Current Living Situation: Significant Other and Other Current Living Situation Comment: 2 sons + girlfriend lives with pt current occupational status: employed current occupation: construction How many Children do You have: 2 Feels Safe at Home: Yes Physical Exam Physical Exam: GENERAL: 47 yo M cachectic, appears chronically ill but in NAD. LUNGS: Clear to auscultation bilaterally. CARDIOVASCULAR: Regular rate and rhythm. ABDOMEN: Taunt, distended. Hepatomegaly on exam. Extensive ecchymosis over right flank and periumbilical. +BS x 4 quad. EXTREMITIES: No edema. Non-tender. Peripheral pulses +2/4. NEUROLOGIC: A&O x3. No focal neurological deficits. CN II-XII grossly intact. PSYCHIATRIC: Cooperative. Appropriate mood and affect. SKIN: Grossly jaundiced with b/l scleral icterus Results & Data Results & Data Vital Signs (Past 12 Hours) Vital Signs Temp Pulse Pulse Resp BP BP Pulse Ox 01/21/23 16:47 95 H 01/21/23 15:43 97 H 24 103/63 93 01/21/23 15:20 92 H 22 93 01/21/23 15:10 91 H 22 93 01/21/23 15:00 97 H 26 H 91 01/21/23 15:00 97/60 L 01/21/23 14:50 96 H 24 94 01/21/23 14:45 105/66 01/21/23 14:45 91 H 24 93 01/21/23 14:40 95 H 23 01/21/23 14:30 90 24 01/21/23 14:30 98/61 L 01/21/23 14:20 100 H 23 94 01/21/23 14:15 106/60 01/21/23 14:15 100 H 91 01/21/23 14:10 93 H 22 93 01/21/23 14:00 92 H 22 112/69 94 01/21/23 13:50 98 H 36 H 95 01/21/23 13:40 92 H 16 94 01/21/23 13:30 97 H 20 95 01/21/23 13:30 112/62 0423 13:20 100 H 24 100 01/21/23 13:15 106/71 01/21/23 13:15 94 H 27 H 100 01/21/23 13:12 109/69 01/21/23 13:12 102 H 23 100 01/21/23 13:10 99 H 24 100 01/21/23 13:00 91 H 23 95 01/21/23 13:00 101/63 01/21/23 12:50 99 H 24 01/21/23 12:40 94 H 23 94 01/21/23 12:39 95 H 24 94 01/21/23 12:55 97 H 22 101/62 99 01/21/23 12:55 97 H 22 99 01/21/23 12:40 92 H 01/21/23 12:28 36.9 C 109 H 16 89/61 L 96 O2 Del Method 01/21/23 16:47 01/21/23 15:43 Room Air 01/21/23 15:20 01/21/23 15:10 01/21/23 15:00 01/21/23 15:00 01/21/23 14:50 01/21/23 14:45 01/21/23 14:45 01/21/23 14:40 01/21/23 14:30 01/21/23 14:30 01/21/23 14:20 01/21/23 14:15 01/21/23 14:15 01/21/23 14:10 01/21/23 14:00 01/21/23 13:50 01/21/23 13:40 01/21/23 13:30 01/21/23 13:30 01/21/23 13:20 01/21/23 13:15 01/21/23 13:15 01/21/23 13:12 01/21/23 13:12 01/21/23 13:10 01/21/23 13:00 01/21/23 13:00 01/21/23 12:50 01/21/23 12:40 01/21/23 12:39 01/21/23 12:55 Room Air 01/21/23 12:55 Room Air 01/21/23 12:40 01/21/23 12:28 Room Air Laboratory Results 01/21/23 13:02 01/21/23 13:02 Diagnostic Findings Chest X-Ray 01/21/23 12:55 SINGLE VIEW CHEST CLINICAL HISTORY: Sepsis. FINDINGS: AP, portable, upright and semierect chest radiographs are compared to study dated 05/01/2022 and correlated with chest CT dated 12/15/2022. A left internal jugular central venous infusion port is in place. Dextrocardia is noted. The cardiomediastinal silhouette is unremarkable. Emphysema and chronic interstitial thickening is similar to previous. A 2.7 cm spiculated nodule is again seen at the right apex. There is mild bibasilar scarring/atelectasis. No airspace consolidation or pleural effusion is identified.. No pneumothorax is seen. The bony thorax is grossly intact. 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 IMPRESSION: 1. Emphysematous change with no acute cardiopulmonary abnormality identified. 2. A 2.7 cm spiculated lesion is again seen at the right apex. Correlate with the oncological history. 3. Dextrocardia and situs inversus. ACT 112: Negative or not required by law. Electronically signed by: Jeremie Whatley M.D. 01/21/2023 1:48 PM KUB X-Ray 01/21/23 12:55 KUB HISTORY: vomiting COMPARISON: Outside hospital abdomen and pelvis CT 12/15/2022. FINDINGS: The liver remains enlarged and is seen on the left side of the body co nsistent the patient's known history of situs inversus. The bowel gas pattern is unremarkable. There are no dilated loops of small bowel to suggest an obstruction. No renal calculi. No ureteral calculi. Calcifications in the deep pelvis likely represent phleboliths. No pneumoperitoneum or pneumatosis. IMPRESSION: 1. Situs inversus again noted. 2. Hepatomegaly, unchanged. 3. No evidence for a bowel obstruction. ACT 112: Negative or not required by law. Electronically signed by: Yogesh Marcus M.D. 01/21/2023 1:42 PM Abdomen/Pelvis CT 01/21/23 14:31 CT OF THE ABDOMEN AND PELVIS WITHOUT CONTRAST CLINICAL HISTORY: Vomiting. Jaundice. Metastatic lung cancer. COMPARISON STUDY: CT of the chest, abdomen and pelvis December 15, 2022. TECHNIQUE: Axial images of the abdomen and pelvis were obtained without IV contrast. Images were reviewed in the axial, sagittal, and coronal planes. Automated exposure control was utilized for the study. A dose lowering technique was utilized adhering to the principles of ALARA. FINDINGS: Note is made of several groundglass nodular densities within the lower lungs which measure up to 7 mm. These are new since CT of December 15, 2022. Evaluation of the abdomen and pelvis is suboptimal given lack of contrast. No pneumatosis, free air or portal venous gas is present. Situs inversus is noted. There has been interval development of heterogeneity of the liver since CT of December 15, 2022. There is suggestion of innumerable hypodense hepatic lesions which measure up to approximately 1.1 cm. Hepatomegaly has also developed. There is no biliary ductal dilatation. A small amount of ascites within the abdomen and pelvis as well as mesenteric edema and stranding has also developed. This may be related to diffuse liver abnormality. Size of the spleen is normal. Adrenal glands and kidneys are unremarkable. There is no hydronephrosis. The pancreas is suboptimally assessed on this exam. Moderate abdominal l ymphadenopathy is noted. This was shown on CT of December 15, 2022. Index gastrohepatic ligament lymph node on image 149 measures 3.8 x 2.6 cm. 7 mm suspected implant lateral to the right kidney on axial image 206 is new since prior CT. There is no evidence for a bowel obstruction. No suspicious lesion within the visualized skeletal structures. The wall edema is present. IMPRESSION: 1. Interval development of heterogeneity of the liver and hepatomegaly since CT of December 15, 2022. Although suboptimally visualized on this unenhanced exam, there is suggestion of innumerable hepatic lesions. Although not definitive, the findings are suspicious for extensive hepatic metastatic disease. A liver p rotocol CT could be obtained for further evaluation. 2. Small amount of ascites and mesenteric edema and stranding. This is nonspecific but likely related to the diffuse liver abnormality. 3. No bowel obstruction. 4. Redemonstration of abdominal lymphadenopathy. New 7 mm implant lateral to the right kidney. ACT 112: Negative or not required by law. Electronically signed by: Russell Aguirre M.D. 01/21/2023 4:10 PM Supervising Physician Co-Signing Physician Notes Patient seen and examined, chart reviewed, case discussed with Tiarra Brooks PA-C and I agree with the assessment and plan as above except as otherwise noted Labs and images reviewed 47-year-old male with a past medical history of lung adenocarcinoma with brain and liver metastasis who presents with acute liver failure due to metastatic disease. Patient is jaundiced, with diminished lung sounds, diffuse abdominal pain on exam. Reports that he is frustrated that there is not more that can be done, but understands he is widely metastatic cancer and would like to go to comfort measures only and to focus on hospice and comfort related care rather than any other attempted aggressive treatment. At time of bedside visit is having some abdominal pain for which she would like a dose of pain medicine, otherwise no questions or concerns. Agree with management as noted above PG Care Time/CCT Total # of Minutes Spent Total Time Spent with Patient: Total time spent is greater than 50% in coordination of care (as documented) at patient's floor/unit and/or counseling patient: Coding Level of Care Code 23141 INT INP/OBS CARE 3/75MIN Diagnoses Acute liver failure K72.00 Acute kidney injury N17.9 Leukocytosis D72.829 Adenocarcinoma of lung, stage 4 C34.90 Acute anemia D64.9 Depression F32.A
[2023-01-21] MEDS ORDERED: HYDROmorphone INJ 0.5 MG/0.5 ML SYR IV PRN (20:08)
[2023-01-21] MEDS ORDERED: HYDROmorphone INJ 0.5 MG/0.5 ML SYR IV STA (20:12)
[2023-01-21] MEDS ORDERED: ONDANSETRON INJ 2 MG/ML 2 ML VIAL IV PRN (22:13)
[2023-01-21] MEDS ORDERED: LORazepam 0.5 MG TAB PO PRN (22:13)
[2023-01-21 22:14] VITALS: BP 89/49; PULSE 106; TEMP 97.5; O2SAT 94
--- NOTE | 2023-01-22 08:59 | Discharge Summary ---
Date of Service January 22, 2023 Admission HPI Per Admitting Provider Aldo Spring is a 47 yo M with a pmhx of NSCLC which was diagnosed in April 2022 and has since spread to his brain and liver who presents to the ER today c/o dehydration with little to no oral intake for the past 2 weeks. [facility] with questionable acute cholecystitis. He was seen by general surgery who did not feel that the patient required surgical intervention for suspected acute cholecystitis as they felt that the gallbladder changes were all secondary to abnormal liver findings concerning for metastatic disease. Patient is currently awake and oriented and accompanied by his girlfriend and sister. Today, his work up in the ER reveals a markedly elevated WBC of 42,000 with a left shift, thrombocytopenia of 66, INR of 4.3, TB of 18, AST 709, ALT 1127, alk phos 463, and lactate of 14.2. He received 3L of fluids with a follow up lactate unchanged at 14.4. Procalcitonin was elevated at 2.42. He had a CT of his abdomen and pelvis which demonstrated hepatomegaly and innumerable hepatic lesions suspicious for extensive hepatic metastatic disease. Small amount of acites was noted and mesenteric edema and stranding. In addition to IVF, received an empiric dose of Zosyn and a dose of IV Zofran and was referred to the hospitalists for admission. Principal Diagnosis 1. Acute liver failure 2. Acute kidney injury 3. 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 Acute anemia 5. Leukocytosis Discharge Exam GENERAL: 47 yo cachectic and jaundiced M EYES: Pupils fixed and dilated LUNGS: Absent breath sounds CARDIOVASCULAR: No heart sounds ABDOMEN: Taunt, distended. Hepatomegaly. Extensive ecchymosis over right flank and periumbilical. Absent bowel sounds. Discharge Data Allergies Allergy/AdvReac Type Severity Reaction Status Date / Time No Known Drug Allergies Allergy Unknown Verified 01/21/23 16:58 Consultations 01/21/23 14:31 ED Decision to Admit Stat Ordered Studies 01/21/23 13:02 01/21/23 13:02 Chest X-Ray 01/21/23 12:55 SINGLE VIEW CHEST CLINICAL HISTORY: Sepsis. FINDINGS: AP, portable, upright and semierect chest radiographs are compared to study dated 05/01/2022 and correlated with chest CT dated 12/15/2022. A left internal jugular central venous infusion port is in place. Dextrocardia is noted. The cardiomediastinal silhouette is unremarkable. Emphysema and chronic interstitial thickening is similar to previous. A 2.7 cm spiculated nodule is again seen at the right apex. There is mild bibasilar scarring/atelectasis. No airspace consolidation or pleural effusion is identified.. No pneumothorax is seen. The bony thorax is grossly intact. 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 IMPRESSION: 1. Emphysematous change with no acute cardiopulmonary abnormality identified. 2. A 2.7 cm spiculated lesion is again seen at the right apex. Correlate with the oncological history. 3. Dextrocardia and situs inversus. ACT 112: Negative or not required by law. Electronically signed by: Jeremie Whatley M.D. 01/21/2023 1:48 PM KUB X-Ray 01/21/23 12:55 KUB HISTORY: vomiting COMPARISON: Outside hospital abdomen and pelvis CT 12/15/2022. FINDINGS: The liver remains enlarged and is seen on the left side of the body consistent the patient's known history of situs inversus. The bowel gas pattern is unremarkable. There are no dilated loops of small bowel to suggest an obstruction. No renal calculi. No ureteral calculi. Calcifications in the deep pelvis likely represent phleboliths. No pneumoperitoneum or pneumatosis. IMPRESSION: 1. Situs inversus again noted. 2. Hepatomegaly, unchanged. 3. No evidence for a bowel obstruction. ACT 112: Negative or not required by law. Electronically signed by: Yogesh Marcus M.D. 01/21/2023 1:42 PM Abdomen/Pelvis CT 01/21/23 14:31 CT OF THE ABDOMEN AND PELVIS WITHOUT CONTRAST CLINICAL HISTORY: Vomiting. Jaundice. Metastatic lung cancer. COMPARISON STUDY: CT of the chest, abdomen and pelvis December 15, 2022. TECHNIQUE: Axial images of the abdomen and pelvis were obtained without IV contrast. Images were reviewed in the axial, sagittal, and coronal planes. Automated exposure control was utilized for the study. A dose lowering technique was utilized adhering to the principles of ALARA. FINDINGS: Note is made of several groundglass nodular densities within the lower lungs which measure up to 7 mm. These are new since CT of December 15, 2022. Evaluat ion of the abdomen and pelvis is suboptimal given lack of contrast. No pneumatosis, free air or portal venous gas is present. Situs inversus is noted. There has been interval development of heterogeneity of the liver since CT of December 15, 2022. There is suggestion of innumerable hypodense hepatic lesions which measure up to approximately 1.1 cm. Hepatomegaly has also developed. There is no biliary ductal dilatation. A small amount of ascites within the abdomen and pelvis as well as mesenteric edema and stranding has also developed. This may be related to diffuse liver abnormality. Size of the spleen is normal. Adrenal glands and kidneys are unremarkable. There is no hydronephrosis. The pancreas is suboptimally assessed on this exam. Moderate abdominal lymphadenopathy is noted. This was shown on CT of December 15, 2022. Index gastrohepatic ligament lymph node on image 149 measures 3.8 x 2.6 cm. 7 mm suspected implant lateral to the right kidney on axial image 206 is new since prior CT. There is no evidence for a bowel obstruction. No suspicious lesion within the visualized skeletal structures. The wall edema is present. IMPRESSION: 1. Interval development of heterogeneity of the liver and hepatomegaly since CT of December 15, 2022. Although suboptimally visualized on this unenhanced exam, there is suggestion of innumerable hepatic lesions. Although not definitive, the findings are suspicious for extensive hepatic metastatic disease. A liver protocol CT could be obtained for further evaluation. 2. Small amount of ascites and mesenteric edema and stranding. This is nonspecific but likely related to the diffuse liver abnormality. 3. No bowel obstruction. 4. Redemonstration of abdominal lymphadenopathy. New 7 mm implant lateral to the right kidney. ACT 112: Negative or not required by law. Electronically signed by: Russell Aguirre M.D. 01/21/2023 4:10 PM Hospital Course (1) Acute liver failure: Acute/unstable - Acute liver failure secondary to metastatic disease - Reviewed CMP on 01/21 - ALT 1100, AST 700, Alk phos 463 with TBili of 18 - CT a/p performed by ED as requested, results as above (2) Acute kidney injury: Acute/unstable - S/p 3L of NSS in ED - Likely secondary to dehydration in setting of little to no fluid intake over the past 2 weeks - Chemistry panel reviewed on 01/21 JAYLIN with hyperkalemia (mild at 5.3) - No further fluids given (3) Leukocytosis: Acute/unstable - Reviewed cbc, marked leukocytosis of 42.02 with left shift - Patient has NOT received neupogen recently - Elevated procalcitonin of 2.42 and lactate of 14 would suggest infection but source is unclear - UA ordered but not collected - Empiric dose of Zosyn given in ED - No further infectious work up will be performed as pt wishes to be comfort (4) Adenocarcinoma of lung, stage 4: Chronic/unstable - Diagnosed in April 2022 s/p chemo and radiation - Metastatic to brain and liver - Extensive smoking history and continues to smoke - Patient would like to transition to comfort measures/hospice (5) Acute anemia: Acute/unstable - CBC reviewed- Hgb 6.2/hct 18.3 - Patient does not want any blood product transfusion - Stop lab draws and consent for blood has been amended (6) Depression: Chronic/stable - Continued on Paxil Plan Lengthy discussion with patient and family at bedside on 01/21 that patient's prognosis is very poor given how advanced his cancer is with wide metastasis to brain and liver which is resulting in liver failure, anemia, poor oral intake, failure to thrive, and acute kidney injury. Patient and family ultimately decided to proceed with transition to comfort care with plans for him to return to his home with hospice. He was admitted to med/surg with palliative consult and case management consult to arrange for home with hospice today. Ativan and Dilaudid were ordered for pain and anxiety. This morning, RN contacted to notify that patient had ceased to breathe. I went to the bedside, he had absent breath sounds, absent heart sounds, and pupils were fixed and dilated. He was pronounced at 0830. I have personally notified the patient's family. Total Time Total Time Spent Total Time Spent (In Minutes): >30 minutes Discharge Plan Discharge Items Patient Disposition: Reason For Visit: METASTATIC LING [place] Follow-up/Referrals: Yogesh Chang M.D. [Primary Care Provider] - Medications and DC Order Prescriptions: No Action baclofen 10 mg tablet 10 mg PO TID PRN (Reason: pain/back spasms) Rx Instructions: 1/2-1 tab PO q8h PRN paroxetine HCl 20 mg tablet 20 mg PO DAILY ondansetron HCl 8 mg tablet 8 mg PO Q8H PRN (Reason: Nausea) prochlorperazine maleate [Compazine] 10 mg tablet 10 mg PO Q6H PRN (Reason: Nausea) benzonatate 100 mg capsule 100 mg PO TID PRN (Reason: cough) Qty: 60 1RF Rx Instructions: 1 or 2 pearls 3 times a day as needed for cough. morphine concentrate 100 mg/5 mL (20 mg/mL) solution 40 mg PO Q4 PRN (Reason: Pain) polyethylene glycol 3350 17 gram/dose powder 17 g PO DAILY terbinafine HCl 250 mg tablet 250 mg PO DAILY folic acid 1 mg tablet 1 mg PO DAILY nystatin 100,000 unit/gram cream 1 applic TOPICAL TID Admission Data Admit Date/Time: 01/21/23 18:06 Attending Provider: Michael De Paz Admit Provider: Michael De Paz Primary Care Provider: Yogesh Chang Other Providers: Michael De Paz ; Quoc Wills ; Emily Junior Coding Level of Care Code 56795 INP/OBS DISCH >30 MIN Diagnoses Acute liver failure K72.00 Acute kidney injury N17.9 Leukocytosis D72.829 Adenocarcinoma of lung, stage 4 C34.90 Acute anemia D64.9 Depression F32.A
[2023-01-22] MEDS ORDERED: PARoxetine HCL 20 MG TAB PO SCH (09:00)
--- NOTE | 2023-01-22 22:20 | Electrocardiogram Report ---
Test Reason : Blood Pressure : / mmHG Vent. Rate : 095 BPM Atrial Rate : 095 BPM P-R Int : 120 ms QRS Dur : 086 ms QT Int : 382 ms P-R-T Axes : 124 120 115 degrees QTc Int : 480 ms Normal sinus rhythm Anterolateral infarct , age undetermined T wave abnormality, consider anterior ischemia Prolonged QT Limb lead reversal suspected Abnormal ECG No previous ECGs available Confirmed by Timothy Deleon ([id number]) on 01/22/2023 10:20:04 PM Referred By: Dae Langston Confirmed By:Timothy Deleon
== END 2023-01-22 13:37 | disposition expired | DRG 435 ==
LOC: ED 12:21 → 3E 18:06